=== PATIENT | female | born 1950 ===

== ENCOUNTER 2022-02-19 11:50 | Emergency (ER) | payer MEDICARE ==
[2022-02-19 12:03] VITALS: TEMP 98
[2022-02-19] MEDS ORDERED: PANTOPRAZOLE 40 MG/10 ML VIAL IVP STA (12:26)
[2022-02-19] MEDS ORDERED: MORPHINE SULFATE 4 MG/ML SYRINGE IV STA (12:26)
[2022-02-19] MEDS ORDERED: ONDANSETRON 4 MG/2 ML VIAL IVP STA (12:26)
[2022-02-19] MEDS ORDERED: SODIUM CHLORIDE 0.9% 1,000 ML IV STA ×2 (12:26→14:19)
--- NOTE | 2022-02-19 12:32 | ED ---
General Adult HPI - General Chief complaint: Abdominal Pain Stated complaint: LLQ pain Time Seen by Provider: 02/19/22 12:16 Source: patient, RN notes reviewed, old records reviewed Mode of arrival: ambulatory Limitations: no limitations - History of Present Illness Initial comments: Patient is a 71-year-old female with no significant past medical history who is primarily [place]-speaking but presents with her family member who translates presents emergency Department complaining of a 3 day history of worsening abdominal pain with nonbloody diarrhea. Patient states that symptoms began last . Describes a crampy, lower abdominal uncomfortable illness. States left side is worse than right. Denies any dysuria or hematuria. Denies any hi story of abdominal surgeries. Denies any vaginal discharge or bleeding. Describes the diarrhea is loose, brown, nonbloody. Endorses nausea but no episodes of emesis. Denies any known sick contacts. Denies fevers, chills, chest pain, cough, shortness of breath. There is no medications at home. Believes she may be dehydrated. Has no other acute complaints at this time. Patient was vaccinated for Covid. Originally presented to an outpatient clinic who instructed her to come here for evaluation for possible diverticulitis. - Related Data Previous Rx's Medication Instructions Recorded Dicyclomine [Bentyl] 10 mg PO TID 7 Days #21 capsule 02/19/22 Ondansetron Odt [Zofran Odt] 4 mg PO Q8HR PRN 3 Days #9 tab 02/19/22 Allergies Allergy/AdvReac Type Severity Reaction Status Date / Time No Known Allergies Allergy Verified 02/19/22 13:32 Review of Systems ROS Statement: Those systems with pertinent positive or pertinent negative responses have been documented in the HPI. Review of Systems: CONST: Denies fever EYES: Denies blurry vision ENT: Denies nasal congestion C/V: Denies Chest pain RESP: Denies shortness of breath GI: Endorses abdominal pain : Denies dysuria SKIN: Denies rash. MSK: Denies joint pain. NEURO: Denies headache ROS Other: All systems not noted in ROS Statement are negative. Past Medical History Past Medical History: No Reported History History of Any Multi-Drug Resistant Organisms: None Reported Past Surgical History: No Surgical Hx Reported Past Psychological History: No Psychological Hx Reported Smoking Status: Never smoker Past Alcohol Use History: None Reported Past Drug Use History: None Reported General Exam - General Exam Comments Initial Comments: General: Appears in no acute distress. HEAD: Normal with no signs of head trauma. EYES: PERRLA, EOMI, conjunctiva normal, no discharge. ENT: Hearing grossly intact, normal oropharynx. RESPIRATORY: Clear breath sounds bilaterally. No wheezes, rales, or rhonchi. C/V: Regular rate and rhythm. S1 and S2 auscultated, no edema, peripheral pulses 2+ and intact throughout ABD: Abdomen is soft, nondistended. Tender to palpation in the bilateral lower quadrants, left more than right. No guarding. No peritoneal signs. No rebound tenderness. EXT: Normal range of motion, no obvious deformity SKIN: No rashes or lesions observed on exposed skin. NEURO: Alert and oriented 4. No focal deficits. Limitations: no limitations Course Vital Signs 02/19/22 02/19/22 02/19/22 12:00 12:51 14:03 Temperature 98 F Pulse Rate 68 82 70 Respiratory 20 18 18 Rate Blood Pressure 108/70 107/62 108/62 O2 Sat by Pulse 100 99 96 Oximetry 02/19/22 16:11 Temperature Pulse Rate 72 Respiratory 18 Rate Blood Pressure 100/51 O2 Sat by Pulse 99 Oximetry Medical Decision Making - Medical Decision Making Based on the patient's presentation and physical exam, I'm concerned for possible intra-abdominal process for the patient's current symptoms. I agreed that diverticulitis is on the differential with the patient clinic. We'll obtain abdominal laboratory studies including urine. She'll be symptomatic treatment with IV fluids and analgesia medications. She'll receive antiemetics. We will Covid and flu swab her. CT abdomen and pelvis will also be obtained. Patient was in agreement this plan. Vital signs within normal limits. CT and pelvis showed sinus nonspecific colitis. There are some small gallstones but no tenderness in the right upper quadrant or epigastric region. Laboratory studies are unremarkable including negative COVID-19 flu testing. I discussed with the patient as well as her family. Since remained within normal limits. I informed her that she is colitis. I believe it is safer to be discharged home. She is tolerating oral intake. She was in agreement this plan. Instructed to follow-up with her PCP within the next few days. I will provide the patient with a prescription for Bentyl, ODT Zofran. I instructed the patient to follow up with their PCP in the next 1-3 days. I explained that the patient should return to the emergency department if they experience any worsening symptoms. Strict return precautions were discussed with the patient. The patient expressed understanding of these instructions. I answered all questions that the patient had. The patient was discharged home in good condition with their prescriptions and follow up information. - Lab Data Result diagrams: 02/19/22 12:43 02/19/22 12:43 Lab Results 02/19/22 02/19/22 02/19/22 Range/Units 12:43 12:43 12:43 WBC 6.2 (3.8-10.6) k/uL RBC 4.89 (3.80-5.40) m/uL Hgb 14.4 (11.4-16.0) gm/dL Hct 42.7 (34.0-46.0) % MCV 87.4 (80.0-100.0) fL MCH 29.5 (25.0-35.0) pg MCHC 33.8 (31.0-37.0) g/dL RDW 12.6 (11.5-15.5) % Plt Count 263 (150-450) k/uL MPV 6.6 Neutrophils % (Manual) 43 % Band Neuts % (Manual) 8 % Lymphocytes % (Manual) 35 % Monocytes % (Manual) 14 % Neutrophils # (Manual) 3.10 (1.3-7.7) k/uL Lymphocytes # (Manual) 2.17 (1.0-4.8) k/uL Monocytes # (Manual) 0.87 (0-1.0) k/uL Nucleated RBCs 0 (0-0) /100 WBC Manual Slide Review Performed Reactive Lymphocytes Present RBC Morphology Normal PT 10.1 (9.0-12.0) sec INR 0.9 (<1.2) APTT 23.6 (22.0-30.0) sec Sodium 133 L (137-145) mmol/L Potassium 3.7 (3.5-5.1) mmol/L Chloride 99 (98-107) mmol/L Carbon Dioxide 26 (22-30) mmol/L Anion Gap 8 mmol/L BUN 10 (7-17) mg/dL Creatinine 0.75 (0.52-1.04) mg/dL Est GFR (CKD-EPI)AfAm >90 (>60 ml/min/1.73 sqM) Est GFR (CKD-EPI)NonAf 82 (>60 ml/min/1.73 sqM) Glucose 107 H (74-99) mg/dL Calcium 8.9 (8.4-10.2) mg/dL Total Bilirubin 0.6 (0.2-1.3) mg/dL AST 25 (14-36) U/L ALT 13 (4-34) U/L Alkaline Phosphatase 83 (38-126) U/L Total Protein 7.5 (6.3-8.2) g/dL Albumin 4.3 (3.5-5.0) g/dL Amylase 84 (30-110) U/L Lipase 162 (23-300) U/L Urine Color Urine Appearance (Clear) Urine pH (5.0-8.0) Ur Specific [place] (1.001-1.035) Urine Protein (Negative) Urine Glucose (UA) (Negative) Urine Ketones (Negative) Urine Blood (Negative) Urine Nitrite (Negative) Urine Bilirubin (Negative) Urine Urobilinogen (<2.0) mg/dL Ur Leukocyte Esterase (Negative) Urine RBC (0-5) /hpf Urine WBC (0-5) /hpf Urine Mucus (None) /hpf Coronavirus (PCR) (Not Detectd) Influenza Type A RNA (Not Detectd) Influenza Type B (PCR) (Not Detectd) 02/19/22 02/19/22 02/19/22 Range/Units 12:46 12:46 14:38 WBC (3.8-10.6) k/uL RBC (3.80-5.40) m/uL Hgb (11.4-16.0) gm/dL Hct (34.0-46.0) % MCV (80.0-100.0) fL MCH (25.0-35.0) pg MCHC (31.0-37.0) g/dL RDW (11.5-15.5) % Plt Count (150-450) k/uL MPV Neutrophils % (Manual) % Band Neuts % (Manual) % Lymphocytes % (Manual) % Monocytes % (Manual) % Neutrophils # (Manual) (1.3-7.7) k/uL Lymphocytes # (Manual) (1.0-4.8) k/uL Monocytes # (Manual) (0-1.0) k/uL Nucleated RBCs (0-0) /100 WBC Manual Slide Review Reactive Lymphocytes RBC Morphology PT (9.0-12.0) sec INR (<1.2) APTT (22.0-30.0) sec Sodium (137-145) mmol/L Potassium (3.5-5.1) mmol/L Chloride (98-107) mmol/L Carbon Dioxide (22-30) mmol/L Anion Gap mmol/L BUN (7-17) mg/dL Creatinine (0.52-1.04) mg/dL Est GFR (CKD-EPI)AfAm (>60 ml/min/1.73 sqM) Est GFR (CKD-EPI)NonAf (>60 ml/min/1.73 sqM) Glucose (74-99) mg/dL Calcium (8.4-10.2) mg/dL Total Bilirubin (0.2-1.3) mg/dL AST (14-36) U/L ALT (4-34) U/L Alkaline Phosphatase (38-126) U/L Total Protein (6.3-8.2) g/dL Albumin (3.5-5.0) g/dL Amylase (30-110) U/L Lipase (23-300) U/L Urine Color Yellow Urine Appearance Clear (Clear) Urine pH 6.0 (5.0-8.0) Ur Specific [place] 1.010 (1.001-1.035) Urine Protein Trace H (Negative) Urine Glucose (UA) Negative (Negative) Urine Ketones Negative (Negative) Urine Blood Negative (Negative) Urine Nitrite Negative (Negative) Urine Bilirubin Negative (Negative) Urine Urobilinogen <2.0 (<2.0) mg/dL Ur Leukocyte Esterase Trace H (Negative) Urine RBC <1 (0-5) /hpf Urine WBC 2 (0-5) /hpf Urine Mucus Few H (None) /hpf Coronavirus (PCR) Not Detected (Not Detectd) Influenza Type A RNA Not Detected (Not Detectd) Influenza Type B (PCR) Not Detected (Not Detectd) Disposition Clinical Impression: Colitis, Dehydration, Diarrhea Disposition: HOME SELF-CARE Condition: Good Instructions (If sedation given, give patient instructions): Colitis (ED) Prescriptions: Dicyclomine [Bentyl] 10 mg PO TID 7 Days #21 capsule Ondansetron Odt [Zofran Odt] 4 mg PO Q8HR PRN 3 Days #9 tab PRN Reason: Nausea Is patient prescribed a controlled substance at d/c from ED?: No Referrals: Nonstaff,Physician [Primary Care Provider] - 1-2 days Time of Disposition: 14:50
[2022-02-19 12:52] VITALS: RESP 18
[2022-02-19 13:06] LABS: ALT 13 U/L (4-34); AST 25 U/L (14-36); African American GFR (CKD) >90 (>60 ml/min/1.73 sqM); Albumin 4.3 g/dL (3.5-5.0); Alkaline Phosphatase 83 U/L (38-126); Amylase 84 U/L (30-110); Anion Gap 8 mmol/L; Blood Urea Nitrogen 10 mg/dL (7-17); Calcium 8.9 mg/dL (8.4-10.2); Carbon Dioxide 26 mmol/L (22-30); Chloride 99 mmol/L (98-107); Glucose 107 mg/dL (74-99); Lipase 162 U/L (23-300); Non-African American GFR(CKD) 82 (>60 ml/min/1.73 sqM); Potassium 3.7 mmol/L (3.5-5.1); Sodium 133 mmol/L (137-145); Total Bilirubin 0.6 mg/dL (0.2-1.3); Total Protein 7.5 g/dL (6.3-8.2)
[2022-02-19 13:13] LABS: HCT 42.7 % (34.0-46.0); HGB 14.4 gm/dL (11.4-16.0); MCH 29.5 pg (25.0-35.0); MCHC 33.8 g/dL (31.0-37.0); MCV 87.4 fL (80.0-100.0); Mean Platelet Volume 6.6; Platelet Count 263 k/uL (150-450); RBC 4.89 m/uL (3.80-5.40); RDW 12.6 % (11.5-15.5); WBC 6.2 k/uL (3.8-10.6)
[2022-02-19 13:15] LABS: INR 0.9 (<1.2); Partial Thromboplastin Time 23.6 sec (22.0-30.0); Prothrombin Time 10.1 sec (9.0-12.0)
[2022-02-19 13:48] LABS: Band Neutrophils % 8 %; Lymphocytes # (M) 2.17 k/uL (1.0-4.8); Monocytes # (M) 0.87 k/uL (0-1.0); Neutrophils % (M) 43 %; Nucleated Red Blood Cells 0 /100 WBC (0-0); Total Cells Counted 100
[2022-02-19 13:50] LABS: Reactive Lymphocytes Present
[2022-02-19 13:51] LABS: RBC Morphology Normal
[2022-02-19 14:51] LABS: Appearance,Urine Clear (Clear); Bilirubin,Urine Negative (Negative); Blood,Urine Negative (Negative); Color,Urine Yellow; Glucose,Urine (UA) Negative (Negative); Ketones,Urine Negative (Negative); Leukocyte Esterase,Urine Trace (Negative); Mucus,Urine Few /hpf; Nitrite,Urine Negative (Negative); Protein,Urine Trace (Negative); RBC,Urine <1 /hpf (0-5); Urobilinogen,Urine <2.0 mg/dL (<2.0); WBC,Urine 2 /hpf (0-5)
--- NOTE | 2022-02-19 14:53 | CT ---
EXAMINATION TYPE: CT abdomen pelvis w con DATE OF EXAM: 02/19/2022 COMPARISON: None HISTORY: Left lower quadrant abdominal pain and diarrhea x2 days. CT DLP: 648.9 mGycm Automated exposure control for dose reduction was used. CONTRAST: Performed with IV Contrast, patient injected with 100ml mL of Isovue 370. Images obtained from the diaphragm to the floor the pelvis with IV contrast. There is some coarse interstitial infiltrates at the lung bases. Heart size is fairly normal. No bruce cardial effusion. No pleural effusion. Liver is intact. There is small calcified gallstone. Gallbladder measures 4.2 cm. Spleen is intact. S tomach is intact. There is no evidence of pancreatic mass. There is no adrenal mass. Kidneys show satisfactory contrast opacification. There is no hydronephrosi s. There are bilateral renal cortical cysts. The largest measures 3 cm on upper pole of the left kidn ey. No retroperitoneal adenopathy. Ureters are not dilated. The bladder distends smoothly. No inguina l hernia. No free fluid in the pelvis. There are large ball fluid levels down to the rectum. There is some wall thickening of the transverse colon and the proximal descending colon. There is hysterectom y. There is small amount of fluid on the left and right lateral pelvic sidewall. No evidence of a bowel obstruction. No mesenteric edema. No evidence of free air. The lumbar vertebra e have normal alignment. No compression fracture. IMPRESSION: There is some mild wall thickening of the transverse colon and proximal descending colon that could b e some nonspecific colitis. Multiple fluid levels consistent with mild diarrhea. Small calcified gallstones. Coarse interstitial density in the lower lung [place] could relate to inte rstitial fibrosis.
[2022-02-19 16:15] VITALS: BP 100/51; PULSE 72
== END 2022-02-19 16:18 | disposition home or self-care (01) ==
LOC: EC 11:50
DX: K52.9 Noninfective gastroenteritis and colitis, unspecified (principal); E86.0 Dehydration; Z20.822 Contact with and (suspected) exposure to COVID-19
CPT/HCPCS: 36415; 80053; 82150; 83690; 85025; 85610; 85730; 81001; 87502; 87635; 74177; 96374; 96375; 96361; 99284; J2270; J2405; C9113; Q9967